=== PATIENT | female | born 1970 | race Caucasian/White ===

== ENCOUNTER 2018-10-12 00:13 | Emergency (ER) | payer OTHER ==
[~2018-10-12] VITALS: Ht 158.8 cm; Wt 63.5 kg
[2018-10-12 00:18] VITALS: Ht 158.8 cm; Wt 63.5 kg
[2018-10-12 00:42] VITALS: BP 151/109
== END 2018-10-12 00:42 | disposition home or self-care (01) ==
LOC: ED 00:13 → EDSEX 00:13 → ED 00:42
DX: Z02.89 Encounter for other administrative examinations (principal); I10 Essential (primary) hypertension; J45.909 Unspecified asthma, uncomplicated; F41.9 Anxiety disorder, unspecified; M79.7 Fibromyalgia; Z88.0 Allergy status to penicillin; Z88.8 Allergy status to other drugs, medicaments and biological substances